=== PATIENT | male | born 1970 | race Caucasian/White ===

== ENCOUNTER 2019-07-10 09:40 | Outpatient (CLI) | payer BC ==
--- NOTE | 2019-07-10 11:09 | RAD ---
LEFT FOOT 3 VIEWS: Date: 07/10/19 HISTORY: Pain. Injury. FINDINGS: There is a transverse fracture through the proximal diaphysis of the fifth metatarsal. Minimal angula tion. No significant displacement. No other fracture or acute abnormality. Mild degenerative change at first MTP joint. IMPRESSION: Transverse fracture proximal diaphysis of fifth metatarsal. POS: [facility]
== END 2019-07-10 09:41 | disposition home or self-care (01) ==
LOC: BICRAD 09:40
PROVIDERS: ATTEND Specialist
DX: M84.375A Stress fracture, left foot, initial encounter for fracture (principal); S92.352A Displaced fracture of fifth metatarsal bone, left foot, initial encounter for closed fracture